=== PATIENT | female | born 1950 | race Caucasian/White ===

== ENCOUNTER 2019-09-19 07:50 | Outpatient (CLI) | payer MEDICARE ==
[2019-09-19] MEDS ORDERED: [UNRECOGNIZED DRUG - OTHER] PO (08:31)
[2019-09-19] MEDS ORDERED: GABA-826 PO (08:31)
[2019-09-19] MEDS ORDERED: ATOR10TA9 PO (08:31)
[2019-09-19] MEDS ORDERED: CALC-118 PO (08:31)
[2019-09-19] MEDS ORDERED: METO25TA35 PO (08:31)
[2019-09-19] MEDS ORDERED: CHOL500050 PO (08:31)
[2019-09-19] MEDS ORDERED: NAPR220C2 PO (08:31)
[2019-09-19] MEDS ORDERED: AMLO-150 PO (08:31)
[2019-09-19] MEDS ORDERED: LISI-167 PO (08:31)
[2019-09-19] MEDS ORDERED: ASPI81TA45 PO (08:31)
[2019-09-19] MEDS ORDERED: MAGNESIUM COMPLEX PO (08:31)
[2019-09-19 08:41] LABS: BASOPHILS # (AUTO) 0.03 x10^3/uL (0-0.1); BASOPHILS % (AUTO) 0 % (0-1); EOSINOPHILS # (AUTO) 0.05 x10^3/uL (0-0.4); EOSINOPHILS % (AUTO) 1 % (1-7); LYMPHOCYTES # (AUTO) 1.58 x10^3/uL (1-3.4); LYMPHOCYTES % (AUTO) 20 % (22-44); MD NO; MEAN CORPUSCULAR HEMOGLOBIN 30.6 pg (27.0-34.8); MEAN CORPUSCULAR HGB CONC 32.7 g/dL (32.4-35.8); MEAN CORPUSCULAR VOLUME 93.3 fL (80-100); MEAN PLATELET VOLUME 7.4 fL (7.4-10.4); MONOCYTES # (AUTO) 0.32 x10^3/uL (0.2-0.8); MONOCYTES % (AUTO) 4 % (2-9); NEUTROPHILS % (AUTO) 75 % (42-75); PLATELET COUNT 326 x10^3/uL (130-400); RED BLOOD COUNT 5.72 x10^6/uL (3.82-5.3); RED CELL DISTRIBUTION WIDTH 14.2 % (9.6-15.2)
[2019-09-19 08:48] LABS: MICROSCOPIC INDICATED
[2019-09-19 08:56] LABS: ALBUMIN 4.1 g/dL (3.4-5.0); ANION GAP 6 mmol/L (5-15); CALCIUM 9.6 mg/dL (8.5-10.1); CHLORIDE 103 mmol/L (98-107)
[2019-09-19 08:59] LABS: ALANINE AMINOTRANSFERASE 17 U/L (12-78); ALKALINE PHOSPHATASE 117 U/L (45-117); BILIRUBIN,TOTAL 0.6 mg/dL (0.2-1.0); CREATININE 0.78 mg/dL (0.55-1.02); TOTAL PROTEIN 8.3 g/dL (6.4-8.2)
== END 2019-09-19 23:59 | disposition home or self-care (01) ==
LOC: STAR 07:50
PROVIDERS: ATTEND Orthopaedic Surgery
DX: M16.12 Unilateral primary osteoarthritis, left hip (principal)
CPT/HCPCS: 36415; 80053; 81001; 85025; 87081; 87086; 87147; 87806; 93005; G0475

== ENCOUNTER 2019-09-25 05:46 | Inpatient (IN) | payer MEDICARE ==
[~2019-09-25] VITALS: Ht 165.1 cm; Wt 111.8 kg
[~2019-09-25 05:46] MED LIST: AMLO-150 PO; ASPI81TA45 PO; ATOR10TA9 PO; CALC-118 PO; CHOL500050 PO; GABA-826 PO; LISI-167 PO; MAGNESIUM COMPLEX PO; METO25TA35 PO; NAPR220C2 PO; [UNRECOGNIZED DRUG - OTHER] PO
[2019-09-25] MEDS ORDERED: SODIUM CHLORIDE 0.9% 50 ML ONE (06:35)
[2019-09-25] MEDS ORDERED: ROPIvacaine/PF 0.2%, 20 ML ONE (06:35)
[2019-09-25] MEDS ORDERED: morphine SULFATE/PF 1 MG/ML, 10ML ONE (06:35)
[2019-09-25] MEDS ORDERED: KETOROLAC 60 MG/2 ML ONE (06:35)
[2019-09-25] MEDS ORDERED: TRANEXAMIC ACID 100 MG/ML, 10ML ONE ×2 (06:35→10:31)
[2019-09-25] MEDS ORDERED: BACITRACIN 50,000 UNIT ONE (06:35)
[2019-09-25] MEDS ORDERED: CEFAZOLIN 1,000 MG ONE ×2 (08:25)
[2019-09-25] MEDS ORDERED: PROPOFOL 10 MG/ML, 20ML ONE (08:25)
[2019-09-25] MEDS ORDERED: SUCCINYLCHOLINE 20 MG/ML, 10ML ONE (08:25)
[2019-09-25] MEDS ORDERED: FENTANYL PF 250 MCG/5ML ONE (08:25)
[2019-09-25] MEDS ORDERED: LIDOCAINE-MPF 2% ,5ML ONE (08:25)
[2019-09-25] MEDS ORDERED: SODIUM CHLORIDE 0.9% PF 10ML ONE (08:25)
[2019-09-25] MEDS ORDERED: LABETALOL 5MG/ML, 20ML IV PRN (08:30)
[2019-09-25] MEDS ORDERED: hydrALAzine 20 MG/ML, 1ML IV PRN (08:30)
[2019-09-25] MEDS ORDERED: EPHEDRINE 50 MG/ML, 1ML IVPush PRN (08:30)
[2019-09-25] MEDS ORDERED: HYDROmorphone 2 MG/ML, 1ML IVPush PRN (08:30)
[2019-09-25] MEDS ORDERED: ONDANSETRON 2MG/ML, 2ML IV PRN (08:30)
[2019-09-25] MEDS ORDERED: MEPERIDINE/PF 25MG/ML,1ML IVPush PRN (08:30)
[2019-09-25] MEDS ORDERED: OXYcodone 5 MG/5 ML ORAL.SOL UDC PO PRN (08:30)
[2019-09-25] MEDS ORDERED: PROMETHAZINE 25 MG/ML, 1ML IV PRN (08:30)
[2019-09-25] MEDS ORDERED: LACTATED RINGERS 1,000 ML IV SCH (08:38)
[2019-09-25] MEDS ORDERED: MIDAZOLAM 1 MG/ML, 2ML ONE (08:47)
[2019-09-25] MEDS ORDERED: LIDOCAINE-MPF 1%, 2ML INFIL ONE (09:00)
[2019-09-25 09:08] VITALS: BP 146/91
[2019-09-25] MEDS ORDERED: VANCOMYCIN PMX 1GM/200ML 200 ML IV ONE (09:30)
[2019-09-25] MEDS ORDERED: CEFAZOLIN 2,000 MG in SODIUM CHLORIDE 0.9% 50 ML IV ONE (09:30)
[2019-09-25] MEDS ORDERED: LORazepam 2 MG/ML, 1ML IVPush PRN (10:00)
[2019-09-25] MEDS ORDERED: ONDANSETRON 2MG/ML, 2ML IVPush PRN (10:00)
[2019-09-25] MEDS ORDERED: ZOLPIDEM 5MG TABLET PO PRN (10:00)
[2019-09-25] MEDS ORDERED: DIPHENHYDRAMINE 25 MG CAPSULE PO PRN (10:00)
[2019-09-25] MEDS ORDERED: morphine SULFATE 10 MG/ML, 1ML IVPush PRN (10:00)
[2019-09-25] MEDS ORDERED: ACETAMINOPHEN 325 MG TABLET PO PRN (10:00)
[2019-09-25] MEDS ORDERED: DEXAMETHASONE 4 MG/ML, 1ML ONE ×2 (10:31)
[2019-09-25] MEDS ORDERED: ROCURONIUM 10MG/ML,5ML ONE (10:34)
[2019-09-25] MEDS ORDERED: GLYCOPYRROLATE 0.2MG/1ML, 5ML ONE (10:34)
[2019-09-25] MEDS ORDERED: NEOSTIGMINE 1 MG/ML, 10ML ONE (10:34)
[2019-09-25] MEDS ORDERED: EPHEDRINE 50 MG/ML, 1ML ONE (10:47)
[2019-09-25] MEDS ORDERED: FENTANYL PF 100 MCG/2ML ONE ×2 (11:06→12:30)
[2019-09-25] MEDS: D5%-0.45% NACL 1,000 ML IV SCH ×3 (12:00→22:00)
[2019-09-25] MEDS ORDERED: TRANEXAMIC ACID 1,000 MG in SODIUM CHLORIDE 0.9% 100 ML IV ONE (12:30)
[2019-09-25] MEDS ORDERED: OXYcodone 5 MG/5 ML ORAL.SOL UDC ONE (12:30)
[2019-09-25] MEDS: FENTANYL PF 100 MCG/2ML IV PRN ×2 (12:36→12:48)
[2019-09-25] MEDS ORDERED: NAPROXEN 250 MG TABLET PO PRN (18:00)
[2019-09-25] MEDS: METOPROLOL TARTRATE 25 MG TABLET PO SCH (18:45)
[2019-09-25 19:38] VITALS: BP 105/68
[2019-09-25] MEDS: OXYcodone/APAP 7.5/325MG TABLET PO PRN (20:27)
[2019-09-25] MEDS ORDERED: ATORVASTATIN 10 MG TABLET PO SCH (21:00)
[2019-09-25] MEDS ORDERED: CALCIUM/VITAMIN D3 250-125 TABLET PO SCH (21:00)
[2019-09-25] MEDS: CEFAZOLIN PMX 2GM/50ML 50 ML IVPB SCH (22:13)
[2019-09-26 00:55] VITALS: BP 112/60
[2019-09-26] MEDS: D5%-0.45% NACL 1,000 ML IV SCH (03:00)
[2019-09-26] MEDS ORDERED: ASPIRIN 81 MG TABLET EC PO SCH (06:00)
[2019-09-26] MEDS: CEFAZOLIN PMX 2GM/50ML 50 ML IVPB SCH ×2 (06:07→14:34)
[2019-09-26] MEDS: METOPROLOL TARTRATE 25 MG TABLET PO SCH (06:08)
[2019-09-26] MEDS: OXYcodone/APAP 7.5/325MG TABLET PO PRN ×2 (06:15→13:22)
[2019-09-26 07:58] VITALS: BP 106/64
[2019-09-26] MEDS ORDERED: MAGNESIUM OXIDE 400 MG TABLET PO SCH (09:00)
[2019-09-26] MEDS ORDERED: GABAPENTIN 100 MG CAPSULE PO SCH (09:00)
[2019-09-26] MEDS ORDERED: ATORVASTATIN 10 MG TABLET PO SCH (09:00)
[2019-09-26] MEDS ORDERED: AMLODIPINE 5 MG TABLET PO SCH (09:00)
[2019-09-26] MEDS ORDERED: LISINOPRIL 10 MG TABLET PO SCH (09:00)
[2019-09-26] MEDS ORDERED: VANCOMYCIN PMX 1GM/200ML 200 ML IVPB ONE (10:00)
[2019-09-26 12:05] VITALS: BP 105/55
[2019-09-26] MEDS ORDERED: ASPIRIN 325 MG TABLET EC PO SCH (17:00)
[2019-09-26] MEDS ORDERED: DOCUSATE 100 MG CAPSULE PO SCH (21:00)
[2019-10-20] MEDS ORDERED: ERGOCALCIFEROL 50,000 UNIT CAPSULE PO SCH (18:00)
== END 2019-09-26 15:46 | disposition home or self-care (01) | DRG 470 ==
LOC: ORIP 07:49 → 4NE 17:17 → DCLOUNGE 09-26 15:36
PROVIDERS: ADMIT Orthopaedic Surgery; ATTEND Orthopaedic Surgery
PROC: 0SRB0JA Replacement of Left Hip Joint with Synthetic Substitute, Uncemented, Open Approach (ICD-10-PCS; principal; 2019-09-25 10:00)
DX: M16.12 Unilateral primary osteoarthritis, left hip (principal); Z68.41 Body mass index [BMI] 40.0-44.9, adult; I10 Essential (primary) hypertension; E78.5 Hyperlipidemia, unspecified; E66.9 Obesity, unspecified; Z82.61 Family history of arthritis
CPT/HCPCS: 36415; 85018; 86850; 86900; C1713; G0378; J0690; J1100; J1885; J2250; J2274; J2704; J2710; J2795; J3010; J3370; C1776; J0330; J7120

== ENCOUNTER → 2020-02-23 | Outpatient (CLI) | payer MEDICARE ==
[~2020-02-23] MED LIST changes: +ACET-1600 PO; +ASCO10004 PO; +CHOL10003 PO
[2020-02-23 14:35] LABS: BASOPHILS # (AUTO) 0.04 x10^3/uL (0-0.1); BASOPHILS % (AUTO) 0 % (0-1); EOSINOPHILS # (AUTO) 0.05 x10^3/uL (0-0.4); EOSINOPHILS % (AUTO) 1 % (1-7); LYMPHOCYTES # (AUTO) 2.14 x10^3/uL (1-3.4); LYMPHOCYTES % (AUTO) 24 % (22-44); MD NO; MEAN CORPUSCULAR HEMOGLOBIN 29.2 pg (27.0-34.8); MEAN CORPUSCULAR HGB CONC 32.7 g/dL (32.4-35.8); MEAN CORPUSCULAR VOLUME 89.3 fL (80-100); MEAN PLATELET VOLUME 7.8 fL (7.4-10.4); MONOCYTES # (AUTO) 0.48 x10^3/uL (0.2-0.8); MONOCYTES % (AUTO) 5 % (2-9); NEUTROPHILS # (AUTO) 6.13 x10^3/uL (1.8-6.8); NEUTROPHILS % (AUTO) 69 % (42-75); PLATELET COUNT 339 x10^3/uL (130-400); RED BLOOD COUNT 5.75 x10^6/uL (3.82-5.3); RED CELL DISTRIBUTION WIDTH 16.6 % (9.6-15.2)
[2020-02-23 14:36] LABS: MICROSCOPIC INDICATED
[2020-02-23 14:41] LABS: ALBUMIN 3.9 g/dL (3.4-5.0); ANION GAP 5 mmol/L (5-15); CALCIUM 9.3 mg/dL (8.5-10.1); CHLORIDE 104 mmol/L (98-107)
[2020-02-23 14:50] LABS: ALANINE AMINOTRANSFERASE 16 U/L (12-78); ALKALINE PHOSPHATASE 110 U/L (45-117); BILIRUBIN,TOTAL 0.6 mg/dL (0.2-1.0); CREATININE 0.84 mg/dL (0.55-1.02); TOTAL PROTEIN 8.3 g/dL (6.4-8.2)
== END | disposition home or self-care (01) ==
LOC: STAR 12:49
PROVIDERS: ATTEND Orthopaedic Surgery
DX: Z01.818 Encounter for other preprocedural examination (principal); M16.11 Unilateral primary osteoarthritis, right hip; I44.7 Left bundle-branch block, unspecified
CPT/HCPCS: 36415; 80053; 81001; 85025; 87081; 87086; 87147; 87806; 93005; G0475

== ENCOUNTER → 2020-03-01 | Outpatient (CLI) | payer MEDICARE | END | disposition home or self-care (01) | LOC: CVU 08:25 | PROVIDERS: ATTEND Internal Medicine Cardiovascular Disease | DX: Z01.810 Encounter for preprocedural cardiovascular examination (principal); I11.9 Hypertensive heart disease without heart failure | CPT/HCPCS: 93306 ==

== ENCOUNTER 2020-03-04 06:10 | Observation (INO) | payer MEDICARE ==
[~2020-03-04] VITALS: Ht 166.4 cm; Wt 119.0 kg
[2020-03-04] MEDS ORDERED: KETOROLAC 60 MG/2 ML ONE (06:37)
[2020-03-04] MEDS ORDERED: TRANEXAMIC ACID 100 MG/ML, 10ML ONE (06:37)
[2020-03-04] MEDS ORDERED: BACITRACIN 50,000 UNIT ONE (06:38)
[2020-03-04] MEDS ORDERED: ROPIvacaine/PF 0.2%, 20 ML ONE (06:38)
[2020-03-04] MEDS ORDERED: morphine SULFATE/PF 1 MG/ML, 10ML ONE (06:38)
[2020-03-04] MEDS ORDERED: EPINEPHRINE 1 MG/ML, 1ML ONE (06:38)
[2020-03-04] MEDS ORDERED: SODIUM CHLORIDE 0.9% 50 ML ONE (06:39)
[2020-03-04] MEDS ORDERED: LACTATED RINGERS 1,000 ML IV SCH (06:41)
[2020-03-04] MEDS ORDERED: FENTANYL PF 100 MCG/2ML ONE ×2 (06:58→10:06)
[2020-03-04] MEDS ORDERED: MIDAZOLAM 1 MG/ML, 2ML ONE (06:58)
[2020-03-04] MEDS ORDERED: VANCOMYCIN PMX 1GM/200ML 200 ML IV ONE (07:00)
[2020-03-04] MEDS ORDERED: CHLORHEXIDINE 15 ML UDC MM ONE (07:00)
[2020-03-04] MEDS ORDERED: MUPI22OI2 NAS (07:21)
[2020-03-04] MEDS ORDERED: TRANEXAMIC ACID 1,000 MG in SODIUM CHLORIDE 0.9% 100 ML IV ONE ×2 (07:30→15:30)
[2020-03-04] MEDS ORDERED: DEXAMETHASONE 4 MG/ML, 1ML ONE (07:30)
[2020-03-04] MEDS ORDERED: GLYCOPYRROLATE 0.2MG/1ML, 5ML ONE (07:30)
[2020-03-04] MEDS ORDERED: ONDANSETRON 2MG/ML, 2ML IVPush PRN (07:30)
[2020-03-04] MEDS ORDERED: ACETAMINOPHEN 325 MG TABLET PO PRN (07:30)
[2020-03-04] MEDS ORDERED: morphine SULFATE 10 MG/ML, 1ML IVPush PRN (07:30)
[2020-03-04] MEDS ORDERED: LORazepam 2 MG/ML, 1ML IVPush PRN (07:30)
[2020-03-04] MEDS ORDERED: ROCURONIUM 10MG/ML,5ML ONE ×2 (07:30)
[2020-03-04] MEDS ORDERED: ZOLPIDEM 5MG TABLET PO PRN (07:30)
[2020-03-04] MEDS ORDERED: ONDANSETRON 2MG/ML, 2ML ONE (07:30)
[2020-03-04] MEDS ORDERED: DIPHENHYDRAMINE 25 MG CAPSULE PO PRN (07:30)
[2020-03-04] MEDS ORDERED: CEFAZOLIN 1,000 MG ONE (07:30)
[2020-03-04] MEDS ORDERED: EPHEDRINE 50 MG/ML, 1ML ONE (07:30)
[2020-03-04] MEDS ORDERED: PROPOFOL 10 MG/ML, 20ML ONE (07:30)
[2020-03-04] MEDS ORDERED: FENTANYL PF 250 MCG/5ML ONE ×2 (08:06→08:44)
[2020-03-04] MEDS ORDERED: OXYcodone 5 MG/5 ML ORAL.SOL UDC PO PRN (08:30)
[2020-03-04] MEDS ORDERED: METOPROLOL 1 MG/ML, 5ML IV PRN (08:30)
[2020-03-04] MEDS ORDERED: OXYcodone 5 MG/5 ML ORAL.SOL UDC ONE (10:06)
[2020-03-04] MEDS: FENTANYL PF 100 MCG/2ML IV PRN ×2 (10:11→10:21)
[2020-03-04] MEDS ORDERED: NAPROXEN 250 MG TABLET PO PRN (12:00)
[2020-03-04 13:36] VITALS: BP 113/64
[2020-03-04] MEDS: CEFAZOLIN PMX 2GM/50ML 50 ML IVPB SCH (15:17)
[2020-03-04] MEDS: D5%-0.45% NACL 1,000 ML IV SCH ×2 (15:17→20:30)
[2020-03-04] MEDS: METOPROLOL TARTRATE 25 MG TAB PO SCH (17:50)
[2020-03-04] MEDS: OXYcodone/APAP 7.5/325MG TABLET PO PRN (18:21)
[2020-03-04 19:16] VITALS: BP 130/72
[2020-03-04] MEDS ORDERED: CALCIUM/VITAMIN D3 250-125 TABLET PO SCH (21:00)
[2020-03-04] MEDS ORDERED: ATORVASTATIN 10 MG TABLET PO SCH (21:00)
[2020-03-05 00:02] VITALS: BP 119/63
[2020-03-05] MEDS: CEFAZOLIN PMX 2GM/50ML 50 ML IVPB SCH ×2 (00:09→08:00)
[2020-03-05] MEDS: D5%-0.45% NACL 1,000 ML IV SCH ×3 (00:44→11:30)
[2020-03-05 04:10] VITALS: BP 130/76
[2020-03-05] MEDS ORDERED: VANCOMYCIN PMX 1GM/200ML 200 ML IVPB ONE (07:30)
[2020-03-05 07:35] VITALS: BP 142/71
[2020-03-05] MEDS ORDERED: ASPIRIN 325 MG TABLET EC PO SCH (08:00)
[2020-03-05] MEDS: METOPROLOL TARTRATE 25 MG TAB PO SCH (08:01)
[2020-03-05] MEDS: OXYcodone/APAP 7.5/325MG TABLET PO PRN (08:01)
[2020-03-05] MEDS ORDERED: MAGNESIUM OXIDE 400 MG TABLET PO SCH (09:00)
[2020-03-05] MEDS ORDERED: DOCUSATE 100 MG CAPSULE PO SCH (09:00)
[2020-03-05] MEDS ORDERED: LISINOPRIL 10 MG TABLET PO SCH (09:00)
[2020-03-05] MEDS ORDERED: AMLODIPINE 5 MG TABLET PO SCH (09:00)
[2020-03-05] MEDS ORDERED: ASCORBIC ACID 500 MG TABLET PO SCH (09:00)
[2020-03-05] MEDS ORDERED: GABAPENTIN 100 MG CAPSULE PO SCH (09:00)
[2020-03-06] MEDS ORDERED: CHOLECALCIFEROL 1,000 UNIT TABLET PO SCH (09:00)
== END 2020-03-05 12:43 | disposition home or self-care (01) ==
LOC: OUT 06:10 → 4NE 11:27 → OUT 11:33 → 4NE 11:33 → DCLOUNGE 03-05 12:29
PROVIDERS: ADMIT Orthopaedic Surgery; ATTEND Orthopaedic Surgery
DX: Z03.818 Encounter for observation for suspected exposure to other biological agents ruled out (principal); M16.11 Unilateral primary osteoarthritis, right hip; I10 Essential (primary) hypertension; E78.5 Hyperlipidemia, unspecified; Z79.899 Other long term (current) drug therapy
CPT/HCPCS: 27130; 36415; 73501; 85018; 86850; 86900; 87635; 96365; 96366; 96367; 97110; 97161; 97165; C1713; C1776; G0378; J0171; J0690; J1100; J1885; J2250; J2274; J2405; J2704; J2795; J3010; J3370; J7120